=== PATIENT | male | born 1950 | race Caucasian/White ===

== ENCOUNTER 2020-03-19 11:40 | Emergency (ER) | payer MEDICARE ==
[~2020-03-19 11:40] MED LIST: OMNICEF 300 MG300 MG PO; ROBITUSSIN AC480 ML PO; VENTOLIN HFA 66.7 GM INH
[2020-03-19 13:27] LABS: HEMOGLOBIN 16.8 gm/dl (14.0-17.5); RED BLOOD COUNT 5.44 M/UL (4.20-5.50); WHITE BLOOD COUNT 10.3 K/UL (4.5-11.0)
[2020-03-19 13:47] LABS: BUN/CREATININE RATIO 20 (0-10)
== END 2020-03-19 16:30 | disposition home or self-care (01) ==
LOC: ER1 11:40
PROVIDERS: Emergency Medicine
DX: M21.372 Foot drop, left foot (principal); I25.2 Old myocardial infarction; I10 Essential (primary) hypertension; Z91.81 History of falling; Z88.0 Allergy status to penicillin
CPT/HCPCS: 70450; 71046; 80053; 82607; 82746; 84439; 84443; 85025; 99284

== ENCOUNTER 2020-04-08 14:20 | Emergency (ER) | payer MEDICARE ==
[2020-04-08 15:20] LABS: HEMOGLOBIN 17.1 gm/dl (14.0-17.5); RED BLOOD COUNT 5.42 M/UL (4.20-5.50); WHITE BLOOD COUNT 6.8 K/UL (4.5-11.0)
[2020-04-08 15:38] LABS: BUN/CREATININE RATIO 21 (0-10)
[2020-04-08] MEDS ORDERED: ROBAXIN-750750 MG PO (17:51)
== END 2020-04-08 18:20 | disposition home or self-care (01) ==
LOC: ER1 14:20
PROVIDERS: Physician Assistant
DX: U07.1 COVID-19 (principal); I25.2 Old myocardial infarction; I10 Essential (primary) hypertension; Z95.1 Presence of aortocoronary bypass graft; Z95.5 Presence of coronary angioplasty implant and graft; Z79.02 Long term (current) use of antithrombotics/antiplatelets; Z88.0 Allergy status to penicillin; Z87.891 Personal history of nicotine dependence
CPT/HCPCS: 0240U; 36415; 80053; 85025; 99285

== ENCOUNTER 2020-04-20 10:06 | Observation (INO) | payer MEDICARE ==
[~2020-04-20] VITALS: Ht 182.9 cm; Wt 88.5 kg
[~2020-04-20 10:06] MED LIST changes: +ROBAXIN-750750 MG PO
[2020-04-20 11:08] LABS: HEMOGLOBIN 17.4 gm/dl (14.0-17.5); RED BLOOD COUNT 5.56 M/UL (4.20-5.50); WHITE BLOOD COUNT 9.3 K/UL (4.5-11.0)
[2020-04-20 11:29] LABS: BUN/CREATININE RATIO 30 (0-10)
[2020-04-20] MEDS ORDERED: AMLODIPINE BESYL5 MG PO (16:56)
[2020-04-20] MEDS ORDERED: LOPRESSOR 25 MG25 MG PO (16:58)
[2020-04-20] MEDS ORDERED: LASIX TAB 20 MG20 MG PO (16:58)
[2020-04-20] MEDS ORDERED: LIPITOR80 MG PO (16:59)
[2020-04-20] MEDS ORDERED: PLAVIX 75 MG TA75 MG PO (16:59)
[2020-04-20] MEDS ORDERED: ZESTORETIC 20-1 EACH PO (16:59)
[2020-04-20] MEDS ORDERED: ASPIRIN EC81 MG PO (17:00)
[2020-04-20] MEDS ORDERED: ALDACTONE 25MG25 MG PO (17:02)
[2020-04-21 04:33] LABS: HEMOGLOBIN 16.1 gm/dl (14.0-17.5); RED BLOOD COUNT 5.12 M/UL (4.20-5.50); WHITE BLOOD COUNT 10.3 K/UL (4.5-11.0)
[2020-04-21 04:50] LABS: BUN/CREATININE RATIO 31 (0-10)
[2020-04-22 06:03] LABS: HEMOGLOBIN 16.5 gm/dl (14.0-17.5); RED BLOOD COUNT 5.29 M/UL (4.20-5.50); WHITE BLOOD COUNT 11.1 K/UL (4.5-11.0)
[2020-04-22 06:38] LABS: BUN/CREATININE RATIO 36 (0-10)
--- NOTE | 2020-04-22 10:28 | NUR ---
Indu Chang rounded on the patient today and wrote an order to d/c his airborne isolation. I spoke with Michelle Lerner and she is in agreement. The isolation has been discontinued.
== END 2020-04-22 14:07 | disposition home or self-care (01) ==
LOC: ER1 10:06 → M/S 13:36 → CDU 13:36 → M/S 04-21 09:01
PROVIDERS: Emergency Medicine; Internal Medicine Infectious Disease; ADMIT Internal Medicine
DX: M21.371 Foot drop, right foot (principal); I25.10 Atherosclerotic heart disease of native coronary artery without angina pectoris; I10 Essential (primary) hypertension; I82.401 Acute embolism and thrombosis of unspecified deep veins of right lower extremity; M50.31 Other cervical disc degeneration, high cervical region; U07.1 COVID-19; Z82.49 Family history of ischemic heart disease and other diseases of the circulatory system; Z88.0 Allergy status to penicillin; Z79.899 Other long term (current) drug therapy; Z79.82 Long term (current) use of aspirin; Z83.3 Family history of diabetes mellitus
CPT/HCPCS: 36415; 70450; 71045; 72125; 72128; 72131; 80048; 80053; 80061; 82607; 83735; 83880; 85025; 85610; 85730; 93005; 96372; 97162; 99285; G0378; J1650; U0002

== ENCOUNTER → 2020-05-07 | Outpatient (CLI) | payer MEDICARE ==
[~2020-05-07] VITALS: Ht 182.9 cm; Wt 88.0 kg
[~2020-05-07] MED LIST changes: +ALDACTONE 25MG25 MG PO; +AMBIEN5 MG PO; +AMLODIPINE BESYL5 MG PO; +ASPIRIN EC81 MG PO; +DESYREL 50 MG T50 MG PO; +FLAGYL500 MG PO; +LASIX TAB 20 MG20 MG PO; +LEVOFLOXACIN500 MG PO; +LIPITOR80 MG PO; +LOPRESSOR 25 MG25 MG PO; +PLAVIX 75 MG TA75 MG PO; +RILUZOLE50 MG PO; +TIZANIDINE HCL2 MG PO; +ZESTORETIC 20-1 EACH PO
== END ==
LOC: OPSV 07:00
DX: G61.81 Chronic inflammatory demyelinating polyneuritis (principal)
CPT/HCPCS: 96365; 96366; J1568

== ENCOUNTER 2020-08-11 23:29 | Inpatient (IN) | payer MEDICARE ==
[~2020-08-11] VITALS: Ht 182.9 cm; Wt 77.3 kg
[~2020-08-11 23:29] MED LIST changes: -AMBIEN5 MG PO; -DESYREL 50 MG T50 MG PO; -FLAGYL500 MG PO; -LEVOFLOXACIN500 MG PO; -RILUZOLE50 MG PO; -TIZANIDINE HCL2 MG PO
[2020-08-12 00:05] LABS: HEMOGLOBIN 14.4 gm/dl (14.0-17.5); RED BLOOD COUNT 4.6 M/UL (4.20-5.50); WHITE BLOOD COUNT 26.6 K/UL (4.5-11.0)
[2020-08-12 00:36] LABS: BUN/CREATININE RATIO 43 (0-10)
[2020-08-12] MEDS ORDERED: DESYREL 50 MG T50 MG PO (04:12)
[2020-08-12] MEDS ORDERED: TIZANIDINE HCL2 MG PO (04:13)
[2020-08-12] MEDS ORDERED: RILUZOLE50 MG PO (04:14)
[2020-08-12 11:22] LABS: HEMOGLOBIN 12.9 gm/dl (14.0-17.5); RED BLOOD COUNT 4.19 M/UL (4.20-5.50); WHITE BLOOD COUNT 14.4 K/UL (4.5-11.0)
[2020-08-12 13:53] LABS: BORDETELLA PARAPERTUSSIS Not Detected (Not Detectd); BORDETELLA PERTUSSIS Not Detected (Not Detectd); CHLAMYDIA PNEUMONIAE Not Detected (Not Detectd); CORONAVIRUS HKU1 Not Detected (Not Detectd); CORONAVIRUS NL63 Not Detected (Not Detectd); CORONAVIRUS OC43 Not Detected (Not Detectd); CORONOAVIRUS 229E Not Detected (Not Detectd); HUMAN METAPNEUMOVIRUS Not Detected (Not Detectd); HUMAN RHINOVIRUS/ENTEROVIRUS Not Detected (Not Detectd); INFLUENZA A Not Detected (Not Detectd); INFLUENZA B Not Detected (Not Detectd); MYCOPLASMA PNEUMONIAE Not Detected (Not Detectd); PARAINFLUENZA VIRUS 1 Not Detected (Not Detectd); PARAINFLUENZA VIRUS 2 Not Detected (Not Detectd); PARAINFLUENZA VIRUS 3 Not Detected (Not Detectd); PARAINFLUENZA VIRUS 4 Not Detected (Not Detectd); RESPIRATORY SYNCYTIAL VIRUS Not Detected (Not Detectd)
[2020-08-12 14:54] LABS: SARS-CoV-2 NOT DETECTED (Not Detectd)
[2020-08-13 05:43] LABS: HEMOGLOBIN 12.2 gm/dl (14.0-17.5); WHITE BLOOD COUNT 17.9 K/UL (4.5-11.0)
[2020-08-13 05:58] LABS: BUN/CREATININE RATIO 57 (0-10)
[2020-08-14 04:36] LABS: HEMOGLOBIN 12.8 gm/dl (14.0-17.5); RED BLOOD COUNT 4.22 M/UL (4.20-5.50)
[2020-08-14 04:37] LABS: WHITE BLOOD COUNT 13.2 K/UL (4.5-11.0)
[2020-08-14 04:53] LABS: BUN/CREATININE RATIO 43 (0-10)
[2020-08-15 03:19] LABS: HEMOGLOBIN 12.4 gm/dl (14.0-17.5); RED BLOOD COUNT 3.99 M/UL (4.20-5.50)
[2020-08-15 03:24] LABS: WHITE BLOOD COUNT 9.5 K/UL (4.5-11.0)
[2020-08-15 03:35] LABS: BUN/CREATININE RATIO 36 (0-10)
[2020-08-15] MEDS ORDERED: FLAGYL500 MG PO (12:41)
[2020-08-15] MEDS ORDERED: LEVOFLOXACIN500 MG PO (12:41)
[2020-08-15] MEDS ORDERED: AMBIEN5 MG PO (12:41)
== END 2020-08-15 16:26 | disposition home or self-care (01) | DRG 871 ==
LOC: ER1 23:29 → CDU 08-12 01:10 → M/S 08-12 01:10
PROVIDERS: Internal Medicine; Physician Assistant; ADMIT Internal Medicine
DX: A41.9 Sepsis, unspecified organism (principal); J69.0 Pneumonitis due to inhalation of food and vomit; J96.01 Acute respiratory failure with hypoxia; G12.21 Amyotrophic lateral sclerosis; M19.90 Unspecified osteoarthritis, unspecified site; G47.00 Insomnia, unspecified; I10 Essential (primary) hypertension; I25.10 Atherosclerotic heart disease of native coronary artery without angina pectoris; Z86.16 Personal history of COVID-19; Z74.01 Bed confinement status; Z88.0 Allergy status to penicillin; Z79.02 Long term (current) use of antithrombotics/antiplatelets; Z79.82 Long term (current) use of aspirin; Z79.899 Other long term (current) drug therapy
CPT/HCPCS: 0240U; 36415; 36600; 71045; 71046; 80048; 80053; 82550; 82553; 82803; 83605; 83874; 83880; 84484; 85025; 85027; 87040; 87070; 87205; 87633; 93005; 94640; 94664; 94760; 96372; 96374; 96375; 96376; 97110-GP-CQ; 97162; 97530; 97530-GP-CQ; 99285; G0378; J0456; J0696; J1335; J1650; J7030

== ENCOUNTER 2020-08-18 20:50 | Emergency (ER) | payer MEDICARE ==
[~2020-08-18 20:50] MED LIST changes: +AMBIEN5 MG PO; +DESYREL 50 MG T50 MG PO; +FLAGYL500 MG PO; +LEVOFLOXACIN500 MG PO; +RILUZOLE50 MG PO; +TIZANIDINE HCL2 MG PO
[2020-08-18 21:10] LABS: HEMOGLOBIN 14.4 gm/dl (14.0-17.5); RED BLOOD COUNT 4.62 M/UL (4.20-5.50); WHITE BLOOD COUNT 16.7 K/UL (4.5-11.0)
[2020-08-18 21:45] LABS: BUN/CREATININE RATIO 28 (0-10)
== END 2020-08-18 23:45 | disposition home or self-care (01) ==
LOC: ER1 20:50
PROVIDERS: Emergency Medicine
DX: G12.21 Amyotrophic lateral sclerosis (principal); J18.9 Pneumonia, unspecified organism; I10 Essential (primary) hypertension; Z88.0 Allergy status to penicillin
CPT/HCPCS: 70450; 70496; 70498; 71045; 80053; 81001; 82550; 82553; 82962; 83605; 83690; 83735; 83874; 84484; 85025; 85610; 85730; 93005; 99285; Q9967

== ENCOUNTER → 2020-12-03 | Day surgery (SDC) | payer MEDICARE ==
[~2020-12-03] MED LIST changes: +ACETAMINOPHEN-1 EAC1 PO; +ALBUTEROL1.25 MG/3 INH; +ALPRAZOLAM0.5 MG PO; +LINZESS145 MCG PO; +LISINOPRIL-HCT1 EAC1 PO; +SOMA350 MG PO; +TRAZODONE HCL50 MG PO
== END | disposition home or self-care (01) ==
LOC: OR 07:30
DX: R13.10 Dysphagia, unspecified (principal); G12.21 Amyotrophic lateral sclerosis; K29.70 Gastritis, unspecified, without bleeding; K29.80 Duodenitis without bleeding; K20.90 Esophagitis, unspecified without bleeding; I11.0 Hypertensive heart disease with heart failure; I50.22 Chronic systolic (congestive) heart failure; G61.81 Chronic inflammatory demyelinating polyneuritis; I25.10 Atherosclerotic heart disease of native coronary artery without angina pectoris; E78.01 Familial hypercholesterolemia; G12.20 Motor neuron disease, unspecified; Z88.0 Allergy status to penicillin; I25.5 Ischemic cardiomyopathy; I25.2 Old myocardial infarction; Z95.5 Presence of coronary angioplasty implant and graft; Z95.810 Presence of automatic (implantable) cardiac defibrillator; Z87.891 Personal history of nicotine dependence; Z20.822 Contact with and (suspected) exposure to COVID-19; J44.9 Chronic obstructive pulmonary disease, unspecified
CPT/HCPCS: 94660; J2704; J7120; U0002

== ENCOUNTER 2020-12-04 22:42 | Inpatient (IN) | payer MEDICARE ==
[~2020-12-04] VITALS: Ht 182.9 cm; Wt 79.4 kg
[~2020-12-04 22:42] MED LIST changes: -LINZESS145 MCG PO; -LISINOPRIL-HCT1 EAC1 PO; -RILUZOLE50 MG PO; -SOMA350 MG PO; -TIZANIDINE HCL2 MG PO; -TRAZODONE HCL50 MG PO
[2020-12-04 23:54] LABS: HEMOGLOBIN 15.3 gm/dl (14.0-17.5); RED BLOOD COUNT 5.24 M/UL (4.20-5.50); WHITE BLOOD COUNT 12.4 K/UL (4.5-11.0)
[2020-12-05 00:12] LABS: BUN/CREATININE RATIO 31 (0-10)
[2020-12-05] MEDS ORDERED: TIZANIDINE HCL2 MG PO (04:13)
[2020-12-05] MEDS ORDERED: RILUZOLE50 MG PO (04:14)
[2020-12-05] MEDS ORDERED: ALBUTEROL1.25 MG/3 INH (09:21)
[2020-12-05] MEDS ORDERED: SOMA350 MG PO (09:22)
[2020-12-05] MEDS ORDERED: LASIX TAB 20 MG20 MG PO (10:22)
[2020-12-05] MEDS ORDERED: LINZESS145 MCG PO (10:23)
[2020-12-05] MEDS ORDERED: LISINOPRIL-HCT1 EAC1 PO (10:24)
[2020-12-05] MEDS ORDERED: TRAZODONE HCL50 MG PO (10:25)
[2020-12-06 07:30] LABS: HEMOGLOBIN 13.9 gm/dl (14.0-17.5); WHITE BLOOD COUNT 12.6 K/UL (4.5-11.0)
[2020-12-06 07:34] LABS: RED BLOOD COUNT 4.58 M/UL (4.20-5.50)
[2020-12-06 07:47] LABS: BUN/CREATININE RATIO 28 (0-10)
--- NOTE | 2020-12-06 21:52 | NUR ---
PATIENT'S STATES THAT HER WANT'S TO GO HOME. PATIENT'S WISHES TO TALK TO DR. SANTIAGO ABOUT TAKING HIM HOME TOMORROW ON HOSPICE.
--- NOTE | 2020-12-07 02:55 | NUR ---
PATIENT'S BP WAS IN THE 70'S. DR. MAHONEY WAS CALLED AT 0110 AND INFORMED THAT THE PATIENT'S SBP WAS IN THE 70'S. MD WAS INFORMED THAT PATIENT WAS AWAKE AND ORIENTED AND TALKING. MD STATED THAT THE PRESSURE WAS NOT REAL AND TO TAKE A MANUAL BP. A MANUAL BP WAS TAKEN BY TWO NURSES. THE PRIMARY NURSE GOT AN SBP OF 74. THE SECONDARY NURSE GOT AN SBP OF 68. DR. MAHONEY WAS CALLED AGAIN AT 0119 AND INFORMED OF THE RESULTS. WAS NOTIFIED THAT THE PATIENT HAD EDEMA IN THE EXTREMITIES AND IS STARTING TO WEEP. MD ORDERED A LEVOPHED DRIP. WHEN GOING TO START THE LEVOPHED DRIP, THE PATIENT REFUSED THE MEDICATION. PATIENT WAS ALERT AND ORIENTED X4. THE IMPORTANCE OF THE MEDICATION WAS EXPLAINED IN DETAIL TO THE PATIENT AND SPOUSE, INCLUDING THE RISK OF WHAT WOULD HAPPEN IF THE MEDICATION WAS NOT GIVEN. INCLUDING THE RISK OF CARDIAC ARREST. PATIENT STATED THAT HE DID NOT CHEST COMPRESSIONS. THE PATIENT FINALLY ALLOWED THE DRIP TO BE STARTED. THE PATIENT'S HR WAS 69 AND BP WAS 55/37. PROCEEDED TO CALL DR. MAHONEY AND ALERT HIM THAT THE LEVOPHED WAS IMPROVING THE PRESSURE AND OF THE PATIENT'S WISHES NOT TO HAVE CHEST COMPRESSIONS. DURING THE CONVERSATION, LAB INFORMED ME THAT THE PATIENT HAD REFUSED HIS LABS, INCLUDING THE PTTHP. SAID IT WAS OKAY THAT THE PATIENT HAD REFUSED HIS PTT AND THAT [facility] WILL TAKE CARE OF THAT AND THE WISHES THE PATIENT MADE REGARDING CPR.
[2020-12-07] MEDS ORDERED: ELIQUIS 5 MG TAB5 MG PO (10:12)
[2020-12-07] MEDS ORDERED: ELIQUIS5 MG PO (10:13)
== END 2020-12-07 16:26 | DRG 299 ==
LOC: ER1 22:42 → CDU 12-05 03:43 → PROG CARE 12-05 14:22
PROVIDERS: Emergency Medicine; Internal Medicine; ADMIT Internal Medicine
PROC: B24BZZ4 Ultrasonography of Heart with Aorta, Transesophageal (ICD-10-PCS; principal; 2020-12-06)
DX: T81.72XA Complication of vein following a procedure, not elsewhere classified, initial encounter (principal); J96.01 Acute respiratory failure with hypoxia; J18.9 Pneumonia, unspecified organism; Z20.822 Contact with and (suspected) exposure to COVID-19; R53.2 Functional quadriplegia; E43 Unspecified severe protein-calorie malnutrition; I50.22 Chronic systolic (congestive) heart failure; G12.21 Amyotrophic lateral sclerosis; J98.11 Atelectasis; Z68.1 Body mass index [BMI] 19.9 or less, adult; Z66 Do not resuscitate; I11.0 Hypertensive heart disease with heart failure; I26.93 Single subsegmental thrombotic pulmonary embolism without acute cor pulmonale; R13.10 Dysphagia, unspecified; E86.0 Dehydration; J43.9 Emphysema, unspecified; M19.90 Unspecified osteoarthritis, unspecified site; G89.29 Other chronic pain; I25.10 Atherosclerotic heart disease of native coronary artery without angina pectoris; F41.9 Anxiety disorder, unspecified; I08.1 Rheumatic disorders of both mitral and tricuspid valves; F32.9 Major depressive disorder, single episode, unspecified; R53.81 Other malaise; I95.9 Hypotension, unspecified; Z93.1 Gastrostomy status; Z95.810 Presence of automatic (implantable) cardiac defibrillator; Z79.01 Long term (current) use of anticoagulants; Z79.82 Long term (current) use of aspirin; Z86.16 Personal history of COVID-19; Z83.3 Family history of diabetes mellitus; Z74.01 Bed confinement status; Z88.0 Allergy status to penicillin
CPT/HCPCS: ECHO; 36415; 71045; 80053; 82550; 82553; 83605; 83735; 83874; 83880; 84484; 85025; 85027; 85379; 85610; 85730; 87040; 93005; 93306; 93970; 94640; 94660; 94664; 94667; 94668; 94760; 99285; J1644; J2185; J7070; Q9957; Q9967; U0002